=== PATIENT | male | born 1980 | race Caucasian/White ===

== ENCOUNTER 2021-07-30 09:49 | Emergency (ER) | payer OTHER ==
[~2021-07-30] VITALS: Ht 167.6 cm; Wt 70.3 kg
[2021-07-30] MEDS ORDERED: PERCOCET 5-3251 EACH PO (13:48)
[2021-07-30 14:19] VITALS: BP 121/82
== END 2021-07-30 14:20 | disposition home or self-care (01) ==
LOC: ER 09:49
DX: S52.124A Nondisplaced fracture of head of right radius, initial encounter for closed fracture (principal); S92.001A Unspecified fracture of right calcaneus, initial encounter for closed fracture; S00.83XA Contusion of other part of head, initial encounter; S80.212A Abrasion, left knee, initial encounter; W13.2XXA Fall from, out of or through roof, initial encounter; Y93.89 Activity, other specified; Y92.69 Other specified industrial and construction area as the place of occurrence of the external cause; Y99.9 Unspecified external cause status